=== PATIENT | female | born 1985 | race Caucasian/White ===

== ENCOUNTER 2017-10-09 15:15 | Emergency (ER) | payer OTHER ==
[~2017-10-09 15:15] MED LIST: AMBIEN10 MG PO; ATIVAN0.5 M1 PO; TORADOL10 MG PO
[2017-10-09 18:07] LABS: BASOPHIL % 0.6 % (0-2); PLATELET COUNT 225 x10^3mcL (130-400); RED CELL DISTRIBUTION WIDTH 12.8 % (11.5-14.5)
[2017-10-09 18:15] LABS: CALCIUM 8.3 mg/dL (8.5-10.1); CARBON DIOXIDE 25.2 mmol/L (21-32); CHLORIDE SERUM 108 mmol/L (98-107); CREATININE SERUM 0.7 mg/dL (0.6-1.0); GFR1 > 60 mL/min; GLUCOSE SERUM 95 mg/dL (74-106); POTASSIUM SERUM 3.8 mmol/L (3.5-5.1); SODIUM SERUM 143 mmol/L (136-145)
[2017-10-09 18:20] LABS: ALBUMIN 3.6 g/dL (3.4-5.0); ALKALINE PHOSPHATASE 75 U/L (46-116); ALT/SGPT 22 U/L (14-59); AST/SGOT 11 U/L (15-37); BILIRUBIN TOTAL 0.4 mg/dL (0.20-1.00); TOTAL PROTEIN, SERUM 6.5 g/dL (6.4-8.2)
[2017-10-09 22:14] LABS: microscopic required? NO
[2017-10-09 23:00] LABS: urine erythrocyte NEGATIVE (NEGATIVE)
[2017-10-09 23:28] VITALS: BP 106/70
== END 2017-10-09 23:28 | disposition home or self-care (01) ==
LOC: ED 15:15
PROVIDERS: Emergency Medicine
DX: R07.9 Chest pain, unspecified (principal); R10.9 Unspecified abdominal pain
CPT/HCPCS: 83880; J1885; J2270; J2405; J3010; J7030